=== PATIENT | female | born 1965 | race Caucasian/White ===

== ENCOUNTER 2020-09-22 13:13 | Emergency (ER) | payer OTHER ==
[~2020-09-22] VITALS: Ht 170.2 cm; Wt 61.7 kg
[2020-09-22 13:15] VITALS: BP_SYST 162
--- NOTE | 2020-09-22 13:19 | NUR ---
Patient to ER bed 8 to gown for evaluation. Side rails up. Report given to MARILEE Larios.
--- NOTE | 2020-09-22 13:25 | NUR ---
pt. came in with for c/o back pain, stated over past 2 weeks has had cracking and popping and mild discomfort, monday went on a 8 mile hike and back pain increased but still tolerable, today after sneezing she felt back went out and had pain 01/22, took her husbands [place] and pain now 09/21.
--- NOTE | 2020-09-22 13:30 | NUR ---
ER at bedside examining patient.
[2020-09-22] MEDS ORDERED: NAPR-688 PO (13:37)
[2020-09-22] MEDS ORDERED: HYDR-3917 PO (13:37)
[2020-09-22] MEDS ORDERED: SOM350 PO (13:37)
[2020-09-22] MEDS ORDERED: KETOROLAC TROMETHAMINE 60 MG/2 ML VIAL IM ONE (13:45)
--- NOTE | 2020-09-22 13:59 | NUR ---
Patient transported to radiology via wheelchair, accompanied by staff.
[2020-09-22 14:27] VITALS: BP_SYST 157
--- NOTE | 2020-09-22 14:28 | NUR ---
Patient given written and verbal discharge instructions and verbalizes understanding. Dr. Del Rio discussed with patient the results and treatment provided. Patient in stable condition. Rx of [place], and Soma given. Patient educated on pain management and to follow up with PMD. Pain Scale 2. Opportunity for questions provided and answered. Medication side effect fact sheet provided.
== END 2020-09-22 14:28 | disposition home or self-care (01) ==
LOC: SED 13:13
DX: M54.5 Low back pain (principal)
CPT/HCPCS: 72100; 96372; 99283; J1885